=== PATIENT | female | born 1970 | race Caucasian/White ===

== ENCOUNTER → 2020-10-17 | Day surgery (SDC) | payer MEDICARE, OTHER ==
[~2020-10-17] MED LIST: ACETAMINOPHEN325 MG PO; ALLERGY RELIEF10 MG PO; BACLOFEN10 MG PO; CLONAZEPAM1 MG PO; COLACE100 MG PO; FISH OIL 1,0001 EACH PO; FOLIC ACID1 MG PO; IBUPROFEN800 M1 PO; KEPPRA XR500 MG PO; LIPITOR20 MG PO; LOVAZA1 GM PO; MELOXICAM15 MG PO; MYSOLINE250 MG PO; PERCOCET 5-3251 EACH PO; VIMPAT100 MG PO; VIMPAT150 MG PO; VITAMIN B-121000 MC1 PO; VITAMIN D310 MC4 PO; VITAMIN D31250 MC1 PO; ZONISAMIDE100 MG PO; ZYRTEC10 M3 PO
[2020-10-17 09:10] LABS: HCT 41.2 % (37.0-47.0); HGB 13.5 g/dl (12.5-16.0); MCH 28.7 pg (25.0-31.0); MCHC 32.8 g/dL (32.0-36.0); MCV 87.7 fL (78.0-100.0); RBC 4.7 M/uL (4.20-5.40); RDW 13.5 % (11.5-14.0); WBC 9.6 K/uL (4.0-10.5)
[2020-10-17 09:11] LABS: MPV 10.2 fL (6.0-9.5)
[2020-10-17 10:12] LABS: ALBUMIN 3.9 g/dL (3.4-5.0); BILIRUBIN - TOTAL 0.3 mg/dL (0.2-1.0); BUN/CREAT RATIO (CALC) 18.8 RATIO; CREATININE 0.64 mg/dL (0.51-0.95); GLOBULIN (CALCULATION) 4.2 g/dL; POTASSIUM 3.9 mmol/L (3.5-5.1); TOTAL PROTEIN 8.1 g/dL (6.4-8.2)
== END | disposition home or self-care (01) ==
LOC: FAS 07:59
PROVIDERS: Surgery
DX: Z12.11 Encounter for screening for malignant neoplasm of colon (principal); N95.1 Menopausal and female climacteric states; B18.2 Chronic viral hepatitis C; G43.109 Migraine with aura, not intractable, without status migrainosus; E78.00 Pure hypercholesterolemia, unspecified; C85.90 Non-Hodgkin lymphoma, unspecified, unspecified site; Z20.822 Contact with and (suspected) exposure to COVID-19; Z79.899 Other long term (current) drug therapy; Z91.048 Other nonmedicinal substance allergy status; Z90.49 Acquired absence of other specified parts of digestive tract; Z98.890 Other specified postprocedural states; Z80.3 Family history of malignant neoplasm of breast
CPT/HCPCS: 36415; 80053; J2250; J2704; J7120